=== PATIENT | female | born 1940 | race Caucasian/White ===

== ENCOUNTER 2016-10-14 14:52 | Inpatient (IN) | payer MEDICARE, OTHER ==
[~2016-10-14] VITALS: Ht 154.9 cm; Wt 56.3 kg
[2016-10-18] MEDS ORDERED: ARICEPT DPS5 MG PO (13:11)
[2016-10-18] MEDS ORDERED: LIPITOR40 MG PO (13:11)
[2016-10-18] MEDS ORDERED: NORVASC5 MG PO (13:11)
[2016-10-18] MEDS ORDERED: SENOKOT S1 TAB PO (13:12)
[2016-10-18] MEDS ORDERED: ZESTRIL DPS40 MG PO (13:13)
[2016-10-18] MEDS ORDERED: FLUVIRIN IM (13:14)
[2016-10-18] MEDS ORDERED: GLUTOSE 1537.5 GM PO (13:14)
[2016-10-18] MEDS ORDERED: LEVEMIR100 UNIT/1 SQ (13:14)
[2016-10-18] MEDS ORDERED: TYLENOL DPS325 MG PO (13:15)
[2016-10-18] MEDS ORDERED: MILK OF MAGNESI10 ML PO (13:15)
[2016-10-18] MEDS ORDERED: ULTRAM DPS50 MG PO (13:15)
[2016-10-18] MEDS ORDERED: MAALOX DPS30 ML PO (13:15)
--- NOTE | 2016-10-26 08:47 | DS ---
ADMIT: 10/14/2016 RM/LOC: 521 [facility] MR#: [id number] 2620 [facility] [address] [place] [phone] SASHA PETTY [address] [facility] [place] [address] General Discharge Summary SEX: F AGE: 76 : 1940 ADMISSION DATE: 10/14/2016 DISCHARGE DATE: 10/17/2016 DISCHARGE DIAGNOSES: 1. Left olecranon fracture, displaced. 2. Hypokalemia. 3. Chronic severe dementia. 4. Diabetes mellitus type 2, uncontrolled. 5. Recurrent falls. 6. Chronic hypertension. CONSULTS: Orthopedic Surgery, Silas De Souza MD. PROCEDURE: Left olecranon open reduction and internal fixation performed on October [address] De Souza. HOSPITAL COURSE: The patient was admitted to medical-surgical floor for further evaluation and treatment of her fracture. Orthopedic Surgery was consulted and recommended surgical internal fixation. She was kept n.p.o. in preparation of this. She was found to have a hypokalemia on admission with a potassium of 2.9. This was replaced and stabilized. This was normal at time of discharge. A surgery was performed successfully on October 15. No operative complications. Please see operative note for full details. Postoperatively, her arm was placed in a cast and Physical Therapy was consulted. The patient has severe dementia at home and has had difficulty with cares. Home Social Work and nursing have been consulted, but the patient continues to be a harm to herself, therefore, we recommended placement. Her other chronic medical problems including hypertension and diabetes were monitored and controlled. Once placement was arranged, the patient was discharged. DISCHARGE MEDICATIONS: 1. Aricept 5 mg daily. 2. Lipitor 40 mg daily. 3. Norvasc 5 mg daily. 4. Senokot 1 tab b.i.d. 5. Zestril 40 mg daily. 6. Flu vaccine given. 7. Levemir 30 units daily. 8. Glucose tabs p.r.n. ADMIT: 10/14/2016 RM/LOC: 521 [facility] MR#: [id number] 2620 [facility] [address] [place] [phone] SASHA PETTY [address] [facility] [place] [address] General Discharge Summary SEX: F AGE: 76 : 1940 9. Maalox p.r.n. 10.Milk of magnesia p.r.n. 11.Tylenol p.r.n. 12.Ultram 50 mg one tab p.o. t.i.d. p.r.n. pain. DISCHARGE INSTRUCTIONS: The patient was discharged to [facility] in [place]. She will follow up with myself in 2 weeks as well as with Orthopedic Surgery in 2 weeks. She will continue her diabetic diet. We will monitor her potassium with a metabolic panel prior to her appointment. She will also continue with therapy. Greater than 30 minutes was spent in discharge. Deepika Khan MD/ mustaphal JOB #: [id number] CC: Deepika Khan MD, Attending Physician Deepika Khan MD, Family Physician
--- NOTE | 2016-10-29 09:21 | OR ---
ADMIT: 10/14/2016 RM/LOC: 521 [facility] MR#: [id number] 2620 [facility] [address] [place] [id number] SASHA PETTY [address] [facility] [place] [address] Operative/Delivery Room Report SEX: F AGE: 76 : 1940 SURGERY DATE: 10/15/2016 SURGEON: Silas De Souza MD PREOPERATIVE DIAGNOSIS: Left comminuted displaced olecranon fracture. POSTOPERATIVE DIAGNOSIS: Left comminuted displaced olecranon fracture. PROCEDURE: Left olecranon open reduction and internal fixation. OUTBOUND SALES EXECUTIVE: ASHLEE Sanchez. COMPLICATIONS: None. BLOOD LOSS: 25 mL. TOURNIQUET TIME: 48 minutes. DESCRIPTION OF PROCEDURE: The patient was taken to the operating room, received a general anesthetic and axially block. Left arm prepped and draped in standard fashion. Arms was exsanguinated and tourniquet inflated. A posterior incision was made, dissection carried through subcutaneous tissue. There was a large displaced olecranon fragment. There was a comminuted fragment distal to this measuring about 2.5 cm. Because of the more distal comminution without, it was best not to treat this with a tension band wire. We went ahead and used a large reduction bone clamp, reduced the olecranon fracture, pinned the butterfly fragment more distally. At that point, we used 2 K-wires to pin the olecranon into the coronoid. At that point, we had anatomic fixation of all fracture fragment. We then placed a short olecranon plate posteriorly. We placed a lag screw through the plate up into the coronoid, compressing the fracture fragments in its entirety. We then placed 3 more screws proximally, placed multiple screws distally in bicortical fashion. At that point, AP and lateral images confirmed anatomic reduction of all fracture fragments and good placement of all hardware. We then irrigated out the wounds thoroughly, closed deep tissue with 0 Vicryl, subcutaneous with 2-0 Vicryl, placed jessica in the skin. We applied sterile dressings. She was placed in a long-arm posterior splint. The tourniquet had been deflated and removed. She was taken to recovery room in stable condition. No complications. Silas De Souza MD/ michael JOB #: [id number] CC: Deepika Khan, Attending Physician Deepika Khan, Family Physician
--- NOTE | 2016-10-29 09:22 | CO ---
ADMIT: 10/14/2016 RM/LOC: 1 [facility] MR#: [id number] [address] [place] [phone] SASHA PETTY [address] [place] [address] Consultation Report SEX: F AGE: 76 : 1940 Corrected: 10/27/2016 1329 djs ATTENDING PHYSICIAN: Deepika Khan CONSULTING PHYSICIAN: Silas De Souza MD CHIEF COMPLAINT: Left elbow pain. HISTORY OF PRESENT ILLNESS: The patient is a 76-year-old female, injured her left elbow. She was at home, apparently fell, injured her arm, came to the emergency room, found to have a left displaced olecranon fracture, is admitted for definitive care. PAST MEDICAL HISTORY: Includes diabetes, hypertension, and history of pacemaker. MEDICATIONS: Include: 1. Amlodipine. 2. Lisinopril. 3. Atorvastatin. 4. Insulin. ALLERGIES: NONE LISTED. REVIEW OF SYSTEMS: Negative. PHYSICAL EXAMINATION: GENERAL: Elderly 76-year-old female. She is fairly confused. EXTREMITIES: She is in a splint in the left arm. She has normal sensation throughout the fingers. Good pulses. Full motor function. No pain in the shoulder. No other areas of pain or tenderness. DIAGNOSTIC DATA: X-rays AP, lateral, oblique of the left elbow shows a left comminuted displaced olecranon fracture, some osteoporosis. No other ADMIT: 10/14/2016 RM/LOC: 1 [facility] MR#: [id number] [address] [phone] SASHA PETTY [address] [place] [address] Consultation Report SEX: F AGE: 76 : 1940 abnormalities. IMPRESSION: Left comminuted displaced olecranon fracture. PLAN: We talked about different options. We are going to proceed with left elbow open reduction and internal fixation of the olecranon. We are likely going to have to use the plate due to the more distal nature extending past the coronoid with some comminution. She is aware of the risks, benefits, options, and agreed to proceed. Plan on proceeding tomorrow morning once cleared by primary care. Silas De Souza MD/ michael JOB #: [id number] CC: Deepika Khan, Attending Physician Deepika Khan, Family Physician Corrected: 10/27/2016 1329 djdian
--- NOTE | 2016-10-30 08:52 | HP ---
ADMIT: 10/14/2016 RM/LOC: 521 [facility] MR#: [id number] 2620 [facility] [address] [place] [phone] SASAH PETTY [address] [place] [address] History and Physical SEX: F AGE: 76 : 1940 DATE OF SERVICE: 10/15/2016 CHIEF COMPLAINT: Left elbow pain. HISTORY OF PRESENT ILLNESS: Sasha is a very pleasant 76-year-old white female patient, normally sees Dr. Khan, who presented to the [facility] Emergency Department on 10/14/2016, after she had a fall at home landing on her left elbow. Workup in the ER has shown an intra-articular left olecranon fracture. She is now admitted to the hospital and surgical intervention for the fracture is planned for this morning. PAST MEDICAL HISTORY: Remarkable for: 1. Diabetes mellitus, type 2. 2. Hypertension. 3. Depression. 4. Status post pacemaker. 5. Existing left bundle-branch block. 6. Osteoporosis. 7. Dyslipidemia. 8. There was some question whether she has some dementia. She is confused and a poor historian on today's exam. PAST SURGICAL HISTORY: Noncontributory. MEDICATIONS: Outpatient medications include please list: 1. Amlodipine. 2. Lisinopril. 3. Atorvastatin. 4. Alendronate. 5. Lantus. ALLERGIES: NO KNOWN MEDICAL ALLERGIES. SOCIAL HISTORY: She is a nonsmoker. Denies any alcohol or recreational drug use. She lives with her here in [place]. FAMILY HISTORY: Noncontributory. REVIEW OF SYSTEMS: She denies any chest pain, dyspnea on exertion, syncope. Remainder of her review of systems is negative. PHYSICAL EXAMINATION: VITAL SIGNS: Blood pressure is 150/45, pulse 72, respirations 18, temp 98.0, O2 saturation is 95% on room air. GENERAL: She is awake, alert, in no acute distress. She is pleasantly confused and again a very poor historian. HEENT: Normocephalic, atraumatic. HEART: Regular rate and rhythm. No murmurs, gallops, or rubs. LUNGS: Clear to auscultation bilaterally. ABDOMEN: Soft, nontender, nondistended. No rebound, guarding, or masses. ADMIT: 10/14/2016 RM/LOC: 521 [facility] MR#: [id number] [address] [phone] SASHA PETTY [facility] [place] [address] History and Physical SEX: F AGE: 76 : 1940 EXTREMITIES: No cyanosis, clubbing, or edema. LABORATORY AND X-RAY DATA: Hemoglobin is 12.4, white count is 9.3, and a platelet count of 173. BMP shows a sodium 143; potassium 2.9 on admission, we are repeating that this morning and replacing it; chloride is 107; CO2 is 29; BUN 10; creatinine 0.7; glucose 115; calcium 8.1. EKG shows a paced rhythm with left bundle-branch block. Previous documentation from Dr. Yesi Arvizu with [facility] from October of 2011 indicates that she had a left bundle-branch block on EKG at that time. Chest x-ray was negative. X-ray of the left elbow shows a mildly displaced intra-articular olecranon fracture. ASSESSMENT AND PLAN: 1. Intra-articular left olecranon fracture. Dr. De Souza plans to take to the operating room today. At this point, I see no reason why she cannot undergo her surgery. 2. Hypokalemia. We would replace this orally with a sip of water and 40 mEq of KCl p.o. x1. We will continue all of her home medications at this time, although the alendronate dose will need to be clarified and her last dose will need to be clarified. Dr. Khan will assume Sasha's primary care needs in the morning. Manjinder Felix MD/ michael JOB #: [id number] CC: Deepika Khan, Attending Physician Deepika Khan, Family Physician
--- NOTE | 2016-11-01 11:50 | ER ---
ADMIT: 10/14/2016 RM/LOC: ER [facility] MR#: [id number] 2620 [facility] [address] [place] [phone] SASHA PETTY [address] [place] [address] Emergency Room Report SEX: F AGE: 76 : 1940 DATE: 10/14/2016 ADDENDUM: A 76-year-old white female, coming in after falling. She has a fracture of olecranon process all the way through essentially the mid fossa area, this pretty much transfers from the fossa to the outside. She also has an anterior fracture proximal to that. Sasha also has a degree of dementia as well as diabetes, insulin, hypertension. She has a pacemaker. I spoke with Dr. De Souza and then Dr. Felix. Dr. Felix will admit for Dr. Khan. Dr. De Souza will consult for the Ortho part of this. We did put a splint on her in flexion. CONDITION ON DISCHARGE: Fair. Gildardo Bolivar MD/ michael JOB #: [id number] CC: Gildardo Bolivar MD, Attending Physician Deepika Khan MD, Family Physician
== END 2016-10-17 13:25 | DRG 512 ==
LOC: ER 14:52 → 5MS 16:30
PROVIDERS: ADMIT Family Medicine
PROC: 0PSL04Z Reposition Left Ulna with Internal Fixation Device, Open Approach (ICD-10-PCS; principal; 2016-10-15)
PROC: 3E0234Z Introduction of Serum, Toxoid and Vaccine into Muscle, Percutaneous Approach (ICD-10-PCS; 2016-10-17)
DX: S52.032A Displaced fracture of olecranon process with intraarticular extension of left ulna, initial encounter for closed fracture (principal); E11.65 Type 2 diabetes mellitus with hyperglycemia; F03.90 Unspecified dementia, unspecified severity, without behavioral disturbance, psychotic disturbance, mood disturbance, and anxiety; W19.XXXA Unspecified fall, initial encounter; I10 Essential (primary) hypertension; Z23 Encounter for immunization; F32.9 Major depressive disorder, single episode, unspecified; M19.90 Unspecified osteoarthritis, unspecified site; I44.7 Left bundle-branch block, unspecified; M81.0 Age-related osteoporosis without current pathological fracture; E78.5 Hyperlipidemia, unspecified; E87.6 Hypokalemia; Z79.4 Long term (current) use of insulin; Z95.0 Presence of cardiac pacemaker